=== PATIENT | male | born 1990 | race Caucasian/White ===

== ENCOUNTER 2017-12-31 14:41 | Emergency (ER) | payer MEDICAID, OTHER ==
--- NOTE | 2017-12-31 15:46 | C.PDOC ---
Time Seen by Provider: 12/31/17 15:42 Chief Complaint (Nursing): Headache Past Medical History Vital Signs: Last Vital Signs Temp 98.1 F 12/31/17 14:52 Pulse 90 12/31/17 14:52 Resp 24 12/31/17 14:52 BP 124/93 H 12/31/17 14:52 Pulse Ox 99 12/31/17 14:52 - Social History Hx Tobacco Use: No Hx Alcohol Use: No Hx Substance Use: No - Immunization History Hx Tetanus Toxoid Vaccination: No Hx Influenza Vaccination: No Hx Pneumococcal Vaccination: No ED Course And Treatment O2 Sat by Pulse Oximetry: 99 Disposition - Disposition
--- NOTE | 2017-12-31 16:32 | C.PDOC ---
History Of Present Illness 27 y/o male, with no PMHx, presents to ED c/o gradual onset of headache that developed last night. Pt complains of left side facial tingling, no weakness. She is also concerned about forehead facial muscle twitching. Notes headache subsided now. Denies any other complaints. Time Seen by Provider: 12/31/17 15:42 Chief Complaint (Nursing): Headache History Per: Patient History/Exam Limitations: no limitations Past Medical History Reviewed: Historical Data, Nursing Documentation, Vital Signs Vital Signs: Last Vital Signs Temp 98.1 F 12/31/17 14:52 Pulse 90 12/31/17 14:52 Resp 24 12/31/17 14:52 BP 124/93 H 12/31/17 14:52 Pulse Ox 99 12/31/17 17:08 Family History: States: Unknown Family Hx - Social History Hx Tobacco Use: No Hx Alcohol Use: No Hx Substance Use: No - Immunization History Hx Tetanus Toxoid Vaccination: No Hx Influenza Vaccination: No Hx Pneumococcal Vaccination: No Review Of Systems Except As Marked, All Systems Reviewed And Found Negative. Constitutional: Negative for: Fever, Chills Cardiovascular: Negative for: Chest Pain Respiratory: Negative for: Shortness of Breath Gastrointestinal: Negative for: Nausea, Vomiting Neurological: Positive for: Headache. Negative for: Weakness, Dizziness Physical Exam - Physical Exam Appears: Non-toxic, No Acute Distress Skin: Normal Color, Warm, Dry Head: Atraumatic, Normacephalic Eye(s): bilateral: Normal Inspection Oral Mucosa: Moist Neck: Supple Cardiovascular: Rhythm Regular Respiratory: Normal Breath Sounds, No Rales, No Rhonchi, No Wheezing Gastrointestinal/Abdominal: Soft, No Tenderness Extremity: Normal ROM Neurological/Psych: Oriented x3, Normal Speech ED Course And Treatment - Laboratory Results Result Diagrams: 12/31/17 16:45 12/31/17 16:45 O2 Sat by Pulse Oximetry: 99 Pulse Ox Interpretation: Normal Medical Decision Making Medical Decision Making: Plan: Blood work Assessment: Headache patient remained asymptomatic no complaints. Electrolytes normal. Will discharge home to follow up with pmd within 2 days. Disposition - Disposition Referrals: [facility] [Outside] Katarzyna Acevedo MD [Staff Provider] - Disposition: HOME/ ROUTINE Disposition Time: 17:51 Condition: STABLE Additional Instructions: follow up with your doctor within 2 days follow up with neurology within 2 days call to make an appointment return to ER if symptoms worsens or progress Instructions: Headache, Adult (DC) Forms: [facility] (Upper Sorbian), General Discharge Instructions - Clinical Impression Clinical Impression: Headache - Scribe Statement The provider has reviewed the documentation as recorded by the Scribe KP All medical record entries made by the Scribe were at my direction and personally dictated by me. I have reviewed the chart and agree that the record accurately reflects my personal performance of the history, physical exam, medical decision making, and the department course for this patient. I have also personally directed, reviewed, and agree with the discharge instructions and disposition.
[2017-12-31 16:49] LABS: BASO # 0.1 K/uL (0.0-0.2); BASO % 0.6 % (0.0-2.0); EOS # 0.1 K/uL (0.0-0.7); EOS % 0.6 % (0.0-4.0); HEMOGLOBIN 13.9 g/dL (12.0-18.0); LYMPH # 3.4 K/uL (1.0-4.3); LYMPH % 28.7 % (20.0-40.0); MEAN CORPUSCULAR HEMOGLOBIN 30.4 pg (27.0-31.0); MEAN CORPUSCULAR HGB CONC 34.1 g/dL (33.0-37.0); MEAN PLATELET VOLUME 8.5 fL (7.2-11.7); MONO # 0.8 K/uL (0.0-0.8); MONO % 6.6 % (0.0-10.0); NEUT # 7.5 K/uL (1.8-7.0); NEUT % 63.5 % (50.0-75.0); RBC 4.59 Mil/uL (4.40-5.90); RED CELL DISTRIBUTION WIDTH 12.5 % (11.5-14.5); WHITE BLOOD COUNT 11.7 K/uL (4.8-10.8)
[2017-12-31 17:15] LABS: ALB/GLOB RATIO 1.5 (1.0-2.1); ALBUMIN 4.3 g/dL (3.5-5.0); ALT/SGPT 26 U/L (21-72); AST/SGOT 21 U/L (17-59); BLOOD UREA NITROGEN 12 mg/dL (9-20); CALCIUM 9.2 mg/dl (8.6-10.4); GFR NON-AFRICAN AMERICAN > 60
[2017-12-31 18:41] VITALS: BP 118/68; PULSE 86; RESP 20; TEMP 98.4; O2SAT 97
== END 2017-12-31 17:55 | disposition home or self-care (01) ==
LOC: C.ER 14:41
DX: R51 Headache (principal)